=== PATIENT | male | born 1995 | race Two or more races ===

== ENCOUNTER 2023-10-11 14:11 | Inpatient (IN) | payer OTHER, SELFPAY ==
[~2023-10-11] VITALS: Ht 190.5 cm; Wt 117.5 kg
[2023-10-11 16:00] LABS: BASO % 0.3 % (0.0-1.0); EOS # 0.1 10^3/uL (0.0-0.5); EOS % 0.7 % (0.0-3.0); HEMATOCRIT 37.3 % (42.0-52.0); HEMOGLOBIN 12.3 g/dl (13.5-17.5); LYMPH # 1.9 10^3/uL (1.5-5.0); LYMPH % 13.1 % (24.0-44.0); MEAN CORPUSCULAR HEMOGLOBIN 29.2 pg (27.0-33.0); MEAN CORPUSCULAR VOLUME 88.6 fl (80.0-96.0); MONO # 1.1 10^3/uL (0.0-0.8); MONO % 7.7 % (2.0-8.0); NEUTROPHILS # 11.1 10^3/uL (1.5-8.5); NEUTROPHILS % 77.8 % (36.0-66.0); PLATELET COUNT, AUTOMATED 264 10^3/uL (150-450); RED BLOOD COUNT 4.21 10^6/uL (4.30-6.10); WHITE BLOOD COUNT 14.3 10^3/uL (4.0-10.0)
[2023-10-11 16:04] LABS: ERYTHROCYTE SEDIMENTATION RATE 10 mm/hr (0-15)
[2023-10-11 16:29] LABS: BLOOD UREA NITROGEN 14 MG/DL (9-23); CARBON DIOXIDE LEVEL 25 MMOL/L (20-31); CHLORIDE LEVEL 107 MMOL/L (98-107); CREATININE FOR GFR 0.91 MG/DL (0.70-1.30); GLOMERULAR FILTRATION RATE > 60.0 (>60); GLUCOSE, FASTING 117 MG/DL (60-100); POTASSIUM SERUM 3.9 MMOL/L (3.5-5.1); SODIUM LEVEL 137 MMOL/L (136-145)
[2023-10-11] MEDS: BOOSTRIX VACCINE (TETANUS/DIPHTH/ACEL. PERTUSSIS) 0.5ML SYR IM ONE (17:45)
[2023-10-11] MEDS ORDERED: VANCOMYCIN HCL 2,000 MG in IV FLUID PLACE HOLDER 1 EA IV ONE (19:00)
[2023-10-11] MEDS: AZTREONAM 1 GM in D5W MINI-BAG PLUS 50 ML IV ONE (19:32)
[2023-10-11 19:47] LABS: ALBUMIN 3.7 G/DL (3.2-5.2); ALKALINE PHOSPHATASE 70 U/L (46-116); ALT/SGPT 19 U/L (7.0-40); AST/SGOT 12 U/L (<34); BILIRUBIN,DIRECT 0.2 MG/DL (<0.4); BILIRUBIN,TOTAL 0.6 MG/DL (0.3-1.2); MAGNESIUM LEVEL 1.6 MG/DL (1.8-2.4); TOTAL PROTEIN 6.7 G/DL (5.7-8.2)
[2023-10-11] MEDS ORDERED: ACETAMINOPHEN TAB 650MG DOSE (2X325MG) PO PRN (20:05)
[2023-10-11] MEDS ORDERED: MOM 30ML SUSPENSION UDC PO PRN (20:05)
[2023-10-11] MEDS ORDERED: MAALOX 30 ML SUSP *UDC PO PRN (20:05)
[2023-10-11] MEDS ORDERED: VANCOMYCIN HCL 1,000 MG in IV FLUID PLACE HOLDER 1 EA IV SCH (20:05)
[2023-10-11] MEDS ORDERED: ACETAMINOPHEN 500 MG TAB PO PRN (20:05)
[2023-10-11] MEDS ORDERED: IBUPROFEN 800 MG TAB PO PRN (20:05)
[2023-10-11] MEDS: KETOROLAC 30 MG/ML 1ML VIAL IV ONE (20:13)
[2023-10-11] MEDS: VANCOMYCIN HCL 1,000 MG, VIAL MATE ADAPTER 1 EACH in D5W 250 ML IV ONE ×2 (20:13→21:47)
[2023-10-11] MEDS: DOCUSATE SODIUM 100MG CAPSULE PO SCH (21:00)
[2023-10-11] MEDS ORDERED: HOME MED LIST COMPLETE! XX SCH (21:30)
[2023-10-11] MEDS: MAGNESIUM OXIDE 400MG TAB (MAG-OX) PO ONE (21:48)
[2023-10-11] MEDS: LR 1,000 ML IV SCH (23:47)
[2023-10-11] MEDS: AZTREONAM IV SCH (23:49)
[2023-10-11] MEDS: D5W IV SCH (23:49)
[2023-10-12 00:21] VITALS: BP 136/87; TEMP 97.5; O2SAT 99
[2023-10-12] MEDS: VANCOMYCIN HCL 750 MG, VIAL MATE ADAPTER 1 EACH in D5W 250 ML IV SCH ×2 (04:17→05:46)
[2023-10-12 05:38] VITALS: BP 127/76; TEMP 97.9; O2SAT 96
[2023-10-12 06:24] LABS: HEMATOCRIT 35.4 % (42.0-52.0); HEMOGLOBIN 11.6 g/dl (13.5-17.5); MEAN CORPUSCULAR HEMOGLOBIN 29.3 pg (27.0-33.0); MEAN CORPUSCULAR HGB CONC 32.8 g/dl (32.0-36.5); MEAN CORPUSCULAR VOLUME 89.4 fl (80.0-96.0); PLATELET COUNT, AUTOMATED 243 10^3/uL (150-450); RED BLOOD COUNT 3.96 10^6/uL (4.30-6.10); WHITE BLOOD COUNT 13.8 10^3/uL (4.0-10.0)
[2023-10-12 06:57] LABS: ALBUMIN 3.1 G/DL (3.2-5.2); ALKALINE PHOSPHATASE 55 U/L (46-116); ALT/SGPT 14 U/L (7.0-40); AST/SGOT < 8 U/L (<34); BILIRUBIN,TOTAL 0.6 MG/DL (0.3-1.2); BLOOD UREA NITROGEN 12 MG/DL (9-23); CALCIUM LEVEL 8.6 MG/DL (8.5-10.1); CARBON DIOXIDE LEVEL 27 MMOL/L (20-31); CHLORIDE LEVEL 109 MMOL/L (98-107); CREATININE FOR GFR 0.83 MG/DL (0.70-1.30); GLOMERULAR FILTRATION RATE > 60.0 (>60); GLUCOSE, FASTING 93 MG/DL (60-100); MAGNESIUM LEVEL 1.9 MG/DL (1.8-2.4); POTASSIUM SERUM 4.1 MMOL/L (3.5-5.1); SODIUM LEVEL 141 MMOL/L (136-145); TOTAL PROTEIN 6.1 G/DL (5.7-8.2)
[2023-10-12 07:53] LABS: ERYTHROCYTE SEDIMENTATION RATE 13 mm/hr (0-15)
[2023-10-12] MEDS: AZTREONAM 2 GM in D5W MINI-BAG PLUS 100 ML IV SCH (08:21)
[2023-10-12] MEDS ORDERED: AMOX875T2 PO (11:47)
[2023-10-12] MEDS ORDERED: PROBCAP14 PO (11:47)
[2023-10-12] MEDS ORDERED: IBUP80TA PO (11:47)
[2023-10-12 12:00] VITALS: BP 143/84; TEMP 97.5; O2SAT 96
[2023-10-12] MEDS: VANCOMYCIN HCL 1,000 MG, VIAL MATE ADAPTER 1 EACH in D5W 250 ML IV SCH (12:00)
[2023-10-12] MEDS ORDERED: DOXY100C3 PO (16:53)
== END 2023-10-12 14:08 | disposition home or self-care (01) | DRG 720 ==
LOC: M ED 14:11 → M ED INP 20:02 → M MS5PR 10-12 00:16
PROVIDERS: ADMIT Preventive Medicine Undersea and Hyperbaric Medicine; ATTEND Preventive Medicine Undersea and Hyperbaric Medicine
DX: A41.9 Sepsis, unspecified organism (principal); L03.114 Cellulitis of left upper limb; S61.412A Laceration without foreign body of left hand, initial encounter; M79.89 Other specified soft tissue disorders; Z88.0 Allergy status to penicillin; W26.0XXA Contact with knife, initial encounter; Y92.9 Unspecified place or not applicable; Y93.9 Activity, unspecified; Y99.9 Unspecified external cause status